=== PATIENT | female | born 1985 | race Caucasian/White ===

== ENCOUNTER 2016-10-10 15:55 | Outpatient (CLI) | payer OTHER | END 2016-10-10 15:56 | disposition home or self-care (01) | DX: Z36 Encounter for antenatal screening of mother (principal) ==

== ENCOUNTER 2016-10-11 13:02 | Outpatient (CLI) | payer OTHER | END 2016-10-11 13:03 | disposition home or self-care (01) | DX: E04.1 Nontoxic single thyroid nodule (principal) ==

== ENCOUNTER 2016-11-07 07:41 | Outpatient (CLI) | payer OTHER | END 2016-11-07 08:30 | disposition home or self-care (01) | DX: O36.8130 Decreased fetal movements, third trimester, not applicable or unspecified (principal); Z3A.40 40 weeks gestation of pregnancy ==

== ENCOUNTER 2016-11-08 05:42 | Inpatient (IN) | payer OTHER ==
[2016-11-08] MEDS ORDERED: SODIUM CHLORIDE FLUSH 0.9% 10 ML SYRINGE IVP PRN (06:20)
[2016-11-08] MEDS ORDERED: ONDANSETRON 4 MG/2 ML VIAL IVP PRN ×2 (06:55→09:11)
[2016-11-08] MEDS ORDERED: fentaNYL 100 MCG/2 ML VIAL IVP PRN (06:55)
[2016-11-08] MEDS ORDERED: OXYTOCIN/LACTATED RINGERS 250 ML IV SCH (07:00)
[2016-11-08] MEDS: LACTATED RINGERS 1,000 ML IV SCH ×2 (07:50→10:05)
[2016-11-08] MEDS ORDERED: fentaNYL 100 MCG/2 ML VIAL ONE (08:13)
[2016-11-08] MEDS ORDERED: SUFENTA/BUPIV 0.4 MCG/0.0625% 150 ML EP ONE (08:50)
[2016-11-08] MEDS ORDERED: miSOPROStol 200 MCG TABLET ONE (08:56)
[2016-11-08] MEDS ORDERED: diphenhydrAMINE INJ 50 MG/ML VIAL IVP PRN (09:11)
[2016-11-08] MEDS ORDERED: NALBUPHINE 20 MG/ML AMP IVP PRN (09:11)
[2016-11-08] MEDS ORDERED: LACTATED RINGERS 500 ML IV ONE (09:11)
[2016-11-08] MEDS ORDERED: ePHEDrine 50 MG/ML AMP IVP PRN (09:11)
[2016-11-08] MEDS ORDERED: METOCLOPRAMIDE 10 MG/2 ML VIAL IVP PRN (09:11)
[2016-11-08] MEDS ORDERED: SUFENTA/BUPIV 0.4 MCG/0.0625% 150 ML EP PRN (09:11)
[2016-11-08] MEDS ORDERED: NALOXONE 0.4 MG/ML VIAL IVP PRN (09:11)
[2016-11-08] MEDS ORDERED: ROPIVACAINE 0.5% PF 20 ML AMPULE EP ONE (09:15)
[2016-11-08] MEDS ORDERED: OXYTOCIN/LACTATED RINGERS 250 ML IV ONE (11:55)
[2016-11-08] MEDS ORDERED: MAGNESIUM HYDROXIDE 2,400 MG/30 ML UDC PO PRN (11:55)
[2016-11-08] MEDS ORDERED: oxyCODONE 5 MG TABLET PO PRN (11:55)
[2016-11-08] MEDS: ACETAMINOPHEN 500 MG TABLET PO SCH ×2 (13:53→21:34)
[2016-11-08] MEDS: DOCUSATE SODIUM 100 MG CAPSULE PO SCH (21:34)
[2016-11-09] MEDS: CELECOXIB 100 MG CAPSULE PO SCH ×2 (02:51→11:04)
[2016-11-09] MEDS: ACETAMINOPHEN 500 MG TABLET PO SCH (05:07)
[2016-11-09] MEDS: DOCUSATE SODIUM 100 MG CAPSULE PO SCH (11:04)
== END 2016-11-09 12:45 | disposition home or self-care (01) | DRG 775 ==
PROC: 10907ZC Drainage of Amniotic Fluid, Therapeutic from Products of Conception, Via Natural or Artificial Opening (ICD-10-PCS; principal; 2016-11-08)
PROC: 10E0XZZ Delivery of Products of Conception, External Approach (ICD-10-PCS; principal; 2016-11-08)
DX: O70.0 First degree perineal laceration during delivery (principal); Z3A.40 40 weeks gestation of pregnancy; Z37.0 Single live birth